=== PATIENT | male | born 1975 | race Caucasian/White ===

== ENCOUNTER 2020-05-18 20:15 | Emergency (ER) | payer OTHER ==
[~2020-05-18] VITALS: Ht 185.4 cm; Wt 108.9 kg
[2020-05-18 21:49] LABS: BASOPHILS 0.5 % (0.0-2.0); EOSINOPHILS 0.1 % (0.0-3.0); HEMATOCRIT 41.9 % (42.0-52.0); HEMOGLOBIN 14.8 gm/dL (14.0-18.0); LYMPHOCYTES 24.7 % (24.0-44.0); MCH 29.7 pg (26.0-34.0); MCHC 35.4 g/dL (28.0-37.0); MCV 83.8 fL (80.0-100.0); MONOCYTES 8.9 % (1.0-8.0); PLATELET COUNT 180 thou/uL (150-400); POLYS 65.8 % (36.0-66.0); RDW 12.9 % (10.5-14.5); WBC 4.6 thou/uL (4.0-11.0)
[2020-05-18 21:56] LABS: CALCIUM 8.6 mg/dL (8.5-10.1); CREATININE 1.4 mg/dL (0.7-1.3); POTASSIUM 3.4 mmol/L (3.5-5.1)
[2020-05-18 22:04] LABS: ALBUMIN 3.5 g/dL (3.4-5.0); DIRECT BILIRUBIN 0.1 mg/dL (<0.1-0.2); MAGNESIUM 1.9 mg/dL (1.8-2.4); TOTAL BILIRUBIN 0.5 mg/dL (0.2-1.0); TOTAL PROTEIN 7.8 g/dL (6.4-8.2)
[2020-05-18 23:48] LABS: URINE BILIRUBIN NEGATIVE (Negative); URINE BLOOD NEGATIVE (Negative); URINE CLARITY CLEAR; URINE COLOR YELLOW; URINE GLUCOSE-RANDOM* NEGATIVE (Negative); URINE KETONES NEGATIVE (Negative); URINE LEUKOCYTES-REFLEX NEGATIVE (Negative); URINE NITRITE-REFLEX NEGATIVE (Negative); URINE PROTEIN (DIPSTICK) TRACE (Negative)
[2020-05-19 00:26] VITALS: BP 180/129
== END 2020-05-19 00:26 | disposition home or self-care (01) ==
LOC: ER 20:15
PROVIDERS: Emergency Medicine
DX: U07.1 COVID-19 (principal)